=== PATIENT | male | born 1965 | race Hispanic/Latino ===

== ENCOUNTER 2025-07-07 20:46 | Emergency (ER) | payer SELFPAY ==
[2025-07-07 20:50] VITALS: BP 174/83
--- NOTE | 2025-07-07 21:29 | ED.GENMED ---
History of Present Illness
General
Chief Complaint: Breathing Problem
Source: patient and family (Son-in-law at bedside to help translate)
Exam Limitations: none
Time Seen by Provider: 07/07/25 21:14
Nursing documentation reviewed up to this point in time: agreed with
History of Present Illness
History of Present Illness:
59-year-old male with history of HTN, NIDDM and asthma presents for wheezing getting worse over the past few days, not responding to his albuterol inhaler.
He denies fever or chills. He is visiting from [facility]
Past History
Past History
ED Past Medical History: Asthma, HTN and NIDDM
ED Past Surgical History: None
Social History
Tobacco: Non-smoker
Alcohol: None
Living: with family
Review of Systems
Review of Systems
Allergies reviewed?: Yes
All Other Systems: ROS reviewed and negative except as documented in HPI and ROS
Phy Exam
Physical Exam
Physical Exam:
GENERAL: No acute distress. A&Ox3.
CONSTITUTIONAL: Afebrile.
EYES: clear, conjunctivae normal
ENMT: moist mucus membranes, Pharynx nl
RESPIRATORY: Regular respirations, nonlabored, lungs with inspiratory and expiratory wheezes throughout.
CARDIOVASCULAR: Regular rate and rhythm, no murmurs, no rubs.
GI: Soft, nontender, normal BS
MUSCULOSKELETAL: Moves with ease. Well perfused.
SKIN: Warm, dry, pink
PSYCH: Normal mood and affect. Well kept, interactive and appropriate
NEUROLOGIC: Awake, alert and oriented. No focal neurological deficits
Scores
Heart Failure Risk
Heart Failure Risk Score: Not Applicable
Course
Orders/Labs/Results
Orders:
Orders
07/07/25 21:28
Dexamethasone [Decadron] 10 mg PO NOW STA
Ipratropium/Albuterol Sulfate [Duoneb] 3 ml INH R NOW STA
07/07/25 22:26
CR Chest - 2 Views Urgent
Comment:
Reason For Exam: wheezing
07/07/25 23:11
Ipratropium/Albuterol Sulfate [Duoneb] 3 ml INH R NOW STA
07/08/25 00:38
Ipratropium/Albuterol Sulfate [Duoneb] 3 ml INH R NOW STA
Vital Signs
Initial and Last Documented VS:
Initial Vital Signs
Temp Pulse Resp BP Pulse Ox
98.1 F 57 20 174/83 97
07/07/25 20:50 07/07/25 20:50 07/07/25 20:50 07/07/25 20:50 07/07/25 20:50
Last Documented Vital Signs
Temp Pulse Resp BP Pulse Ox
98.1 F 57 20 131/68 98
07/07/25 20:50 07/07/25 20:50 07/07/25 20:50 07/08/25 01:00 07/08/25 01:00
MDM/Problems Addressed
MDM/Problems Addressed:
59-year-old male with history of HTN, NIDDM and asthma presents for wheezing getting worse over the past few days, not responding to his albuterol inhaler.
He denies fever or chills. He is visiting from [facility]
Afebrile, NAD
Inspiratory and Expiratory wheezes, pulse ox 97%.
Chest x-ray radiology report read: No acute cardiopulmonary abnormality.
11:30 PM:
Patient feeling somewhat better after DuoNeb treatment, still with scattered wheezing throughout although improved, second DuoNeb ordered
07/08 12:30 a.m
Pt feeling much better, still with scattered wheezes. Pulse ox 94-95%
Will give one more duoneb
Rx for Prednisone sent to his pharmacy
*Pulse Oximetry
SaO2: 97
Oxygen Mode of Delivery: Room air
Patient hypoxic: no
*Critical Care Note
Total Time (30-74mins, 75-104mins- exclusive of procedures): Not Applicable
ED Attending Note
-
Portions of this chart may have been created with voice recognition software.� Occasional wrong word or��sound alike� substitutions may have occurred due to the inherent limitations of voice recognition software.
Discharge Plan
Departure
Patient Disposition: Home (Routine Discharge)
Date of Disposition: 07/08/25
Time of Disposition: 00:52
Patient with high blood pressure during this ER visit?: No
Condition: Good
Discharge Problem:
Asthma exacerbation
Instructions: Asthma, Adult (DC)
Prescriptions:
New
prednisone 20 mg tablet
40 mg PO DAILY Qty: 8 0RF
No Action
Ventolin
2 inh inhalation Q6H
Rx Instructions:
100 mcg inhaler
beclomethasone dipropionate
2 inh inhalation Q12H
Rx Instructions:
250 mcg inhaler, twice every 12 hours
Referrals:
NONE,* [Family Provider, Internal Medicine]
Activity Restrictions/Additional Instructions:
As we discussed, continue your inhalers as directed
I sent a prescription to your pharmacy for prednisone 40 mg a day for the next 4 days.
Return here if symptoms worsen despite the medications
Interventions
Interventions:
*Risk Screen - Suicide Last Done: 07/07/25 20:55
*General Assessment Last Done: 07/07/25 22:00
*Neglect/Abuse Screening Last Done: 07/07/25 20:55
*ED- Fall Risk Assessment Last Done: 07/07/25 22:00
*ED COVID-19 Vaccine History Last Done: 07/07/25 22:00
*Nursing Disposition Last Done: 07/08/25 01:05
ED- Cardiac Assessment Last Done: 07/07/25 22:00
ED- Pulmonary Assessment Last Done: 07/07/25 22:00
Discharge Date and Time
Discharge Date/Time: 07/08/25 01:06
Print Language: [id number]
[2025-07-07] MEDS: DECADRON 10 MG PO (21:51)
[2025-07-07] MEDS: DUONEB 3 ML INH ×2 (21:53→23:22)
[2025-07-07 21:59] VITALS: BP 153/75; BMI 39.1
[2025-07-07 23:00] VITALS: BP 137/67
[2025-07-08] VITALS: BP 143/66
[2025-07-08] MEDS: DUONEB 3 ML INH (00:46)
[2025-07-08 01:00] VITALS: BP 131/68
== END 2025-07-08 01:06 | disposition home or self-care (01) ==
LOC: EMR 20:46
PROVIDERS: EMERGENCY PHYSICIAN Emergency Medicine
DX: J45.901 Unspecified asthma with (acute) exacerbation (principal); E11.9 Type 2 diabetes mellitus without complications; I10 Essential (primary) hypertension
CPT/HCPCS: 94640; 99285; 71046